=== PATIENT | male | born 1970 | race Caucasian/White ===

== ENCOUNTER 2018-02-08 20:00 | Inpatient (IN) | payer OTHER ==
[2018-02-08] MEDS: ALBUTEROL 0.5% (NEB) 2.5 MG/0.5 ML AMP INH (21:43)
[2018-02-08] MEDS: HYDROmorphONE 1 MG/ML SYG IV (21:46)
[2018-02-08] MEDS: ONDANSETRON 4 MG INJ IV (21:46)
[2018-02-08] MEDS: METHYLPREDNISOLONE 125 MG INJ IV (21:46)
[2018-02-08 22:16] LABS: TROPONIN-I 0.081 ng/ml (0.000-0.120)
[2018-02-08 23:26] LABS: ADD MAN DIFF? NO
[2018-02-08] MEDS: NITROGLYCERIN 2% 1 GM OINT PKT TD (23:27)
[2018-02-08] MEDS: AZITHROMYCIN 500MG/NS (PMX) 250 ML IV (23:28)
[2018-02-08] MEDS: ASPIRIN 325 MG TAB PO (23:28)
[2018-02-08 23:31] LABS: WHITE BLOOD COUNT 13.3 10^3/ul (4.8-10.8)
[2018-02-08 23:31] LABS: BASOPHIL # 0.1 10^3/ul (0.0-0.1); BASOPHILS % 0.4 % (0.0-2.0); EOSINOPHILS # 0.2 10^3/ul (0.0-0.5); EOSINOPHILS % 1.4 % (0.0-7.0); HEMATOCRIT 39.8 % (42.0-52.0); HEMOGLOBIN 13.7 g/dl (14.0-18.0); LYMPHOCYTES # 1.2 10^3/ul (0.8-2.9); LYMPHOCYTES % 8.8 % (15.0-51.0); MEAN CORPUSCULAR HEMOGLOBIN 29.9 pg (29.0-33.0); MEAN CORPUSCULAR HGB CONC 34.4 g/dl (32.0-37.0); MEAN CORPUSCULAR VOLUME 86.9 fl (82.0-101.0); MEAN PLATELET VOLUME 10.9 fl (7.4-10.4); MONOCYTE # 0.4 10^3/ul (0.3-0.9); MONOCYTES % 3.3 % (0.0-11.0); NEUTROPHIL # 11.4 10^3/ul (1.6-7.5); NEUTROPHILS % 85.5 % (39.0-77.0); PLATELET COUNT 183 10^3/UL (140-415); RED BLOOD COUNT 4.58 10^6/ul (4.70-6.10); RED CELL DISTRIBUTION WIDTH 13.6 % (11.5-14.5)
[2018-02-08 23:49] LABS: ANION GAP 9 (5-13); BLOOD UREA NITROGEN 9 mg/dl (7-20); CALCIUM 8.7 mg/dl (8.4-10.2); CARBON DIOXIDE 21 mmol/L (21-31); CHLORIDE 107 mmol/L (97-110); CREATININE 0.85 mg/dl (0.61-1.24); Estimated GFR > 60 mL/min (>60); GLUCOSE 143 mg/dl (70-220); POTASSIUM 4.4 mmol/L (3.5-5.1); SODIUM 137 mmol/L (135-144)
[2018-02-08 23:50] LABS: INR 0.99; PROTIME 13.2 Sec (11.9-14.9)
[2018-02-08 23:51] LABS: PARTIAL THROMBOPLASTIN TIME 30.2 Sec (23.0-35.0)
[2018-02-08 23:58] LABS: B-TYPE NATRIURETIC PEPTIDE 2910 PG/ML (0-125)
[2018-02-09] MEDS ORDERED: ACETAMINOPHEN 325 MG TAB PO ×2
[2018-02-09] MEDS ORDERED: BISACODYL (EC) 5 MG TAB PO
[2018-02-09] MEDS ORDERED: DOCUSATE SODIUM 100 MG CAP PO
[2018-02-09] MEDS ORDERED: NACL 0.9% 3 ML SYG IV
[2018-02-09] MEDS ORDERED: ONDANSETRON 4 MG INJ IV ×2
[2018-02-09] MEDS: CEFTRIAXONE 1 GM/50 ML (PMX) 50 ML IVPB ×2 (00:07→22:28)
[2018-02-09] MEDS: FUROSEMIDE 20 MG INJ IV ×3 (00:08→17:46)
[2018-02-09 02:39] LABS: ADD MAN DIFF? NO
[2018-02-09 02:49] LABS: HEMOGLOBIN A1C 5.5 % (0-5.9)
[2018-02-09 02:58] LABS: CREATINE KINASE 63 IU/L (23-200)
[2018-02-09 03:00] LABS: ALANINE AMINOTRANSFERASE 43 IU/L (13-69); ALBUMIN 3.9 g/dl (3.3-4.9); ALKALINE PHOSPHATASE 61 IU/L (42-121); ANION GAP 9 (5-13); ASPARTATE AMINO TRANSFERASE 29 IU/L (15-46); BILIRUBIN,INDIRECT 1.3 mg/dl (0-1.1); BILIRUBIN,TOTAL 1.3 mg/dl (0.2-1.3); BLOOD UREA NITROGEN 10 mg/dl (7-20); CALCIUM 8.4 mg/dl (8.4-10.2); CARBON DIOXIDE 23 mmol/L (21-31); CHLORIDE 107 mmol/L (97-110); CHOL/HDL RATIO 6.2 RATIO; CHOLESTEROL 193 mg/dl (100-200); CREATININE 0.85 mg/dl (0.61-1.24); Estimated GFR > 60 mL/min (>60); GLUCOSE 184 mg/dl (70-220); HDL CHOLESTEROL 31 mg/dl (27-67); LDL CHOLESTEROL,CALCULATED 125 mg/dl; MAGNESIUM 1.9 mg/dl (1.7-2.5); POTASSIUM 4.2 mmol/L (3.5-5.1); SODIUM 139 mmol/L (135-144); TOTAL PROTEIN 6.9 g/dl (6.1-8.1); TRIGLYCERIDES 185 mg/dl (0-149)
[2018-02-09 03:06] LABS: ABNORMAL IP MESSAGE 1; BASOPHILS % 0.2 % (0.0-2.0); EOSINOPHILS % 0.1 % (0.0-7.0); HEMOGLOBIN 13.7 g/dl (14.0-18.0); LYMPHOCYTES # 0.6 10^3/ul (0.8-2.9); LYMPHOCYTES % 4.4 % (15.0-51.0); MEAN CORPUSCULAR HEMOGLOBIN 30.6 pg (29.0-33.0); MEAN CORPUSCULAR HGB CONC 35.1 g/dl (32.0-37.0); MEAN CORPUSCULAR VOLUME 87.1 fl (82.0-101.0); MEAN PLATELET VOLUME 11.2 fl (7.4-10.4); MONOCYTE # 0.1 10^3/ul (0.3-0.9); MONOCYTES % 0.9 % (0.0-11.0); NEUTROPHILS % 93.7 % (39.0-77.0); PLATELET COUNT 172 10^3/UL (140-415); POSITIVE DIFF @See below; RED BLOOD COUNT 4.48 10^6/ul (4.70-6.10); RED CELL DISTRIBUTION WIDTH 13.8 % (11.5-14.5)
[2018-02-09 03:06] LABS: WHITE BLOOD COUNT 12.8 10^3/ul (4.8-10.8)
[2018-02-09 03:10] LABS: CK INDEX 1.7; CK-MB 1.09 ng/ml (0.0-2.4)
[2018-02-09] MEDS ORDERED: LORAZEPAM 2 MG INJ IV (06:00)
[2018-02-09 06:32] LABS: ETHANOL < 10.0 mg/dl
[2018-02-09] MEDS: BENAZEPRIL 10 MG TAB PO (08:43)
[2018-02-09] MEDS: ASPIRIN 81 MG TAB PO (08:43)
[2018-02-09] MEDS: THIAMINE 200 MG INJ IM (08:44)
[2018-02-09 11:11] LABS: CREATINE KINASE 64 IU/L (23-200)
[2018-02-09 11:22] LABS: CK INDEX 1.8; CK-MB 1.13 ng/ml (0.0-2.4)
[2018-02-09 11:41] LABS: ADD UMIC NO; UR ASCORBIC ACID NEGATIVE (NEGATIVE); UR BILIRUBIN (Dip) NEGATIVE (NEGATIVE); UR BLOOD (Dip) NEGATIVE (NEGATIVE); UR CLARITY CLEAR (CLEAR); UR COLOR STRAW (YELLOW); UR GLUCOSE (Dip) NEGATIVE (NEGATIVE); UR KETONES (Dip) NEGATIVE (NEGATIVE); UR LEUKOCYTE ESTERASE (Dip) NEGATIVE Leu/ul (NEGATIVE); UR NITRITE (Dip) NEGATIVE (NEGATIVE); UR SPECIFIC GRAVITY (Dip) 1.008 (1.003-1.030); UR TOTAL PROTEIN (Dip) NEGATIVE (NEGATIVE); UR UROBILINOGEN (Dip) NEGATIVE (NEGATIVE)
[2018-02-09] MEDS: DIGOXIN 500 MCG INJ IV (14:22)
[2018-02-09 19:13] LABS: TROPONIN-I 0.066 ng/ml (0.000-0.120)
[2018-02-09] MEDS: ATORVASTATIN 20 MG TAB PO (20:36)
[2018-02-09] MEDS ORDERED: ATORVASTATIN 10 MG TAB PO (21:00)
[2018-02-09] MEDS ORDERED: AZITHROMYCIN 500MG/NS (PMX) 250 ML IVPB (23:00)
[2018-02-10 01:35] LABS: TROPONIN-I 0.095 ng/ml (0.000-0.120)
[2018-02-10] MEDS: FUROSEMIDE 20 MG INJ IV ×2 (05:25→17:30)
[2018-02-10 05:33] LABS: ADD MAN DIFF? NO; BASOPHILS % 0.2 % (0.0-2.0); EOSINOPHILS # 0.1 10^3/ul (0.0-0.5); EOSINOPHILS % 0.7 % (0.0-7.0); HEMATOCRIT 38.8 % (42.0-52.0); HEMOGLOBIN 13.3 g/dl (14.0-18.0); LYMPHOCYTES # 2.7 10^3/ul (0.8-2.9); MEAN CORPUSCULAR HEMOGLOBIN 29.8 pg (29.0-33.0); MEAN CORPUSCULAR HGB CONC 34.3 g/dl (32.0-37.0); MEAN CORPUSCULAR VOLUME 86.8 fl (82.0-101.0); MEAN PLATELET VOLUME 11.1 fl (7.4-10.4); MONOCYTE # 0.8 10^3/ul (0.3-0.9); MONOCYTES % 5.8 % (0.0-11.0); NEUTROPHIL # 9.8 10^3/ul (1.6-7.5); NEUTROPHILS % 72.6 % (39.0-77.0); PLATELET COUNT 178 10^3/UL (140-415); RED BLOOD COUNT 4.47 10^6/ul (4.70-6.10); RED CELL DISTRIBUTION WIDTH 13.4 % (11.5-14.5)
[2018-02-10 05:33] LABS: WHITE BLOOD COUNT 13.5 10^3/ul (4.8-10.8)
[2018-02-10 05:55] LABS: ANION GAP 9 (5-13); BLOOD UREA NITROGEN 20 mg/dl (7-20); CALCIUM 8.6 mg/dl (8.4-10.2); CARBON DIOXIDE 23 mmol/L (21-31); CHLORIDE 107 mmol/L (97-110); CREATININE 0.89 mg/dl (0.61-1.24); Estimated GFR > 60 mL/min (>60); GLUCOSE 129 mg/dl (70-220); POTASSIUM 4.1 mmol/L (3.5-5.1); SODIUM 139 mmol/L (135-144)
[2018-02-10 06:03] LABS: B-TYPE NATRIURETIC PEPTIDE 1500 PG/ML (0-125)
[2018-02-10] MEDS: ASPIRIN 81 MG TAB PO (09:12)
[2018-02-10] MEDS: BENAZEPRIL 10 MG TAB PO (09:12)
[2018-02-10] MEDS: SPIRONOLACTONE 25 MG TAB PO (09:12)
[2018-02-10] MEDS: THIAMINE 200 MG INJ IM (09:13)
[2018-02-10] MEDS: ATORVASTATIN 20 MG TAB PO (21:02)
[2018-02-10] MEDS: FUROSEMIDE 20 MG TAB PO (21:02)
[2018-02-10] MEDS: ENOXAPARIN 40 MG/0.4 ML SYG SC (21:08)
[2018-02-11 06:06] LABS: ADD MAN DIFF? NO
[2018-02-11 06:21] LABS: WHITE BLOOD COUNT 8.1 10^3/ul (4.8-10.8)
[2018-02-11 06:21] LABS: BASOPHIL # 0.1 10^3/ul (0.0-0.1); BASOPHILS % 0.6 % (0.0-2.0); EOSINOPHILS # 0.2 10^3/ul (0.0-0.5); EOSINOPHILS % 2.6 % (0.0-7.0); HEMATOCRIT 43.1 % (42.0-52.0); HEMOGLOBIN 14.6 g/dl (14.0-18.0); LYMPHOCYTES # 2.9 10^3/ul (0.8-2.9); LYMPHOCYTES % 35.5 % (15.0-51.0); MEAN CORPUSCULAR HEMOGLOBIN 29.7 pg (29.0-33.0); MEAN CORPUSCULAR HGB CONC 33.9 g/dl (32.0-37.0); MEAN CORPUSCULAR VOLUME 87.6 fl (82.0-101.0); MEAN PLATELET VOLUME 11.3 fl (7.4-10.4); MONOCYTE # 0.7 10^3/ul (0.3-0.9); MONOCYTES % 8.6 % (0.0-11.0); NEUTROPHIL # 4.2 10^3/ul (1.6-7.5); NEUTROPHILS % 52.1 % (39.0-77.0); PLATELET COUNT 187 10^3/UL (140-415); RED BLOOD COUNT 4.92 10^6/ul (4.70-6.10); RED CELL DISTRIBUTION WIDTH 13.8 % (11.5-14.5)
[2018-02-11] MEDS: FUROSEMIDE 20 MG TAB PO (06:22)
[2018-02-11 06:39] LABS: ANION GAP 12 (5-13); BLOOD UREA NITROGEN 19 mg/dl (7-20); CALCIUM 8.8 mg/dl (8.4-10.2); CARBON DIOXIDE 26 mmol/L (21-31); CHLORIDE 102 mmol/L (97-110); CREATININE 0.93 mg/dl (0.61-1.24); Estimated GFR > 60 mL/min (>60); GLUCOSE 118 mg/dl (70-220); POTASSIUM 4.3 mmol/L (3.5-5.1); SODIUM 140 mmol/L (135-144)
[2018-02-11] MEDS: BENAZEPRIL 10 MG TAB PO (08:50)
[2018-02-11] MEDS: ASPIRIN 81 MG TAB PO (08:50)
[2018-02-11] MEDS: SPIRONOLACTONE 25 MG TAB PO (08:51)
[2018-02-11] MEDS: THIAMINE 200 MG INJ IM (10:40)
== END 2018-02-11 11:55 | disposition home or self-care (01) | DRG 292 ==
LOC: E/R 20:00 → 6WM 23:35
PROVIDERS: Family Medicine
DX: I50.23 Acute on chronic systolic (congestive) heart failure (principal); R65.10 Systemic inflammatory response syndrome (SIRS) of non-infectious origin without acute organ dysfunction; I25.5 Ischemic cardiomyopathy; I25.10 Atherosclerotic heart disease of native coronary artery without angina pectoris; E78.5 Hyperlipidemia, unspecified; I10 Essential (primary) hypertension; F10.20 Alcohol dependence, uncomplicated
CPT/HCPCS: 36415; 71045; 71250; 80048; 80053; 80061; 80307; 81003; 82550; 82553; 83036; 83735; 83880; 84100; 84443; 84484; 85025; 85610; 85730; 87040; 90686; 93005; 93306; 94644; 96374; 96375; 99285-25

== ENCOUNTER → 2018-05-08 | Outpatient (CLI) | payer OTHER ==
[2018-05-08] MEDS: METOPROLOL 100 MG TAB ×2 (09:00→09:16)
[2018-05-08] MEDS: NITROGLYCERIN AEROSOL (4.9 GM) (10:20)
[2018-05-08] MEDS: SOD CHLORIDE 0.9% 100 ML (10:36)
[2018-05-08] MEDS: IOHEXOL 100 ML (10:37)
== END | disposition home or self-care (01) ==
LOC: C/S 08:08
DX: R07.9 Chest pain, unspecified (principal)
CPT/HCPCS: 75571; 75574

== ENCOUNTER 2018-07-01 09:27 | Inpatient (IN) | payer OTHER ==
[2018-07-01 09:35] LABS: ADD MAN DIFF? NO
[2018-07-01 09:37] LABS: BASOPHILS % 0.2 % (0.0-2.0); EOSINOPHILS # 0.1 10^3/ul (0.0-0.5); EOSINOPHILS % 0.4 % (0.0-7.0); HEMATOCRIT 47.9 % (42.0-52.0); HEMOGLOBIN 15.8 g/dl (14.0-18.0); LYMPHOCYTES # 1.8 10^3/ul (0.8-2.9); MEAN CORPUSCULAR HEMOGLOBIN 28.7 pg (29.0-33.0); MEAN CORPUSCULAR VOLUME 86.9 fl (82.0-101.0); MONOCYTE # 0.8 10^3/ul (0.3-0.9); MONOCYTES % 6.4 % (0.0-11.0); NEUTROPHIL # 9.5 10^3/ul (1.6-7.5); NEUTROPHILS % 77.6 % (39.0-77.0); PLATELET COUNT 242 10^3/UL (140-415); RED BLOOD COUNT 5.51 10^6/ul (4.70-6.10); RED CELL DISTRIBUTION WIDTH 13.9 % (11.5-14.5)
[2018-07-01 09:37] LABS: WHITE BLOOD COUNT 12.3 10^3/ul (4.8-10.8)
[2018-07-01] MEDS: SOD CHLORIDE 0.9% 100 ML (09:49)
[2018-07-01] MEDS: IODIXANOL LOCM 100 ML BTL (09:49)
[2018-07-01] MEDS: ASPIRIN 325 MG TAB PO (09:50)
[2018-07-01 09:51] LABS: HEMOGLOBIN A1C 6.5 % (0-5.9)
[2018-07-01 09:55] LABS: ANION GAP 17 (5-13); BLOOD UREA NITROGEN 41 mg/dl (7-20); CALCIUM 9.9 mg/dl (8.4-10.2); CARBON DIOXIDE 24 mmol/L (21-31); CHLORIDE 108 mmol/L (97-110); CHOLESTEROL 247 mg/dl (100-200); CREATINE KINASE 257 IU/L (23-200); ETHANOL < 10.0 mg/dl (0-0); Estimated GFR > 60 mL/min (>60); GLUCOSE 163 mg/dl (70-220); HDL CHOLESTEROL 41 mg/dl (28-71); LDL CHOLESTEROL,CALCULATED 165 mg/dl; POTASSIUM 4.3 mmol/L (3.5-5.1); SODIUM 149 mmol/L (135-144); TRIGLYCERIDES 204 mg/dl (0-149)
[2018-07-01 09:57] LABS: INR 0.97
[2018-07-01 09:58] LABS: PARTIAL THROMBOPLASTIN TIME 34.6 Sec (23.0-35.0)
[2018-07-01 10:06] LABS: TROPONIN-I 0.017 ng/ml (0.000-0.120)
[2018-07-01 10:08] LABS: CK-MB 2.47 ng/ml (0.0-2.4)
[2018-07-01] MEDS ORDERED: ONDANSETRON 4 MG INJ IV ×2 (12:00→19:00)
[2018-07-01] MEDS ORDERED: ACETAMINOPHEN 325 MG TAB PO (12:00)
[2018-07-01] MEDS: ACETAMINOPHEN 325 MG TAB PO (13:26)
[2018-07-01 15:53] LABS: ADD UMIC NO; UR ASCORBIC ACID NEGATIVE (NEGATIVE); UR BILIRUBIN (Dip) NEGATIVE (NEGATIVE); UR BLOOD (Dip) NEGATIVE (NEGATIVE); UR CLARITY CLEAR (CLEAR); UR COLOR YELLOW (YELLOW); UR GLUCOSE (Dip) NEGATIVE (NEGATIVE); UR KETONES (Dip) NEGATIVE (NEGATIVE); UR LEUKOCYTE ESTERASE (Dip) NEGATIVE Leu/ul (NEGATIVE); UR NITRITE (Dip) NEGATIVE (NEGATIVE); UR TOTAL PROTEIN (Dip) NEGATIVE (NEGATIVE); UR UROBILINOGEN (Dip) 2+ mg/dL (NEGATIVE)
[2018-07-01 16:17] LABS: AMPHETAMINE/METHAMPHETAMINE POSITIVE (NEGATIVE); BARBITURATES NEGATIVE (NEGATIVE); BENZODIAZEPINES NEGATIVE (NEGATIVE); CANNABINOIDS NEGATIVE (NEGATIVE); COCAINE NEGATIVE (NEGATIVE); OPIATES NEGATIVE (NEGATIVE)
[2018-07-01] MEDS ORDERED: ZOLPIDEM 5 MG TAB PO (19:00)
[2018-07-01] MEDS ORDERED: LORAZEPAM 2 MG INJ IV (19:00)
[2018-07-01] MEDS ORDERED: GLUCOSE GEL 15 GRAM TUBE PO ×2 (19:30)
[2018-07-01] MEDS ORDERED: DEXTROSE 50% 50 ML SYRINGE IV ×2 (19:30)
[2018-07-01] MEDS ORDERED: GLUCAGON 1 MG INJ IM (19:30)
[2018-07-01] MEDS ORDERED: GLUCOSE GEL 15 GRAM TUBE BUCCAL (19:30)
[2018-07-01] MEDS: DEXTROSE 5%-0.45% NACL 1,000 ML IV (19:30)
[2018-07-01] MEDS: ATORVASTATIN 80 MG TAB PO (20:55)
[2018-07-01] MEDS: DOCUSATE SODIUM 100 MG CAP PO (20:55)
[2018-07-01] MEDS: FUROSEMIDE 20 MG TAB PO (20:55)
[2018-07-01] MEDS: SACUBITRIL/VALSARTAN (24mg-26mg) TABLET PO (20:56)
[2018-07-01] MEDS: FAMOTIDINE 20 MG TAB PO (20:56)
[2018-07-01] MEDS: INSULIN ASPART [NOVOLOG] 3 ML PEN SC (20:56)
[2018-07-02] MEDS: ACCU-CHEK XX (02:00)
[2018-07-02] MEDS: FUROSEMIDE 20 MG TAB PO ×2 (05:52→17:35)
[2018-07-02 06:52] LABS: ADD MAN DIFF? NO
[2018-07-02 06:56] LABS: BASOPHILS % 0.4 % (0.0-2.0); EOSINOPHILS # 0.1 10^3/ul (0.0-0.5); EOSINOPHILS % 1.3 % (0.0-7.0); HEMATOCRIT 45.8 % (42.0-52.0); HEMOGLOBIN 15.1 g/dl (14.0-18.0); LYMPHOCYTES # 1.9 10^3/ul (0.8-2.9); LYMPHOCYTES % 24.2 % (15.0-51.0); MEAN CORPUSCULAR HEMOGLOBIN 28.8 pg (29.0-33.0); MEAN CORPUSCULAR VOLUME 87.2 fl (82.0-101.0); MEAN PLATELET VOLUME 11.2 fl (7.4-10.4); MONOCYTE # 0.6 10^3/ul (0.3-0.9); NEUTROPHIL # 5.2 10^3/ul (1.6-7.5); NEUTROPHILS % 65.7 % (39.0-77.0); PLATELET COUNT 194 10^3/UL (140-415); RED BLOOD COUNT 5.25 10^6/ul (4.70-6.10); RED CELL DISTRIBUTION WIDTH 14.2 % (11.5-14.5)
[2018-07-02 07:24] LABS: ANION GAP 16 (5-13); BLOOD UREA NITROGEN 42 mg/dl (7-20); CARBON DIOXIDE 25 mmol/L (21-31); CHLORIDE 105 mmol/L (97-110); CHOL/HDL RATIO 6.3 RATIO; CHOLESTEROL 216 mg/dl (100-200); Estimated GFR > 60 mL/min (>60); GLUCOSE 134 mg/dl (70-220); HDL CHOLESTEROL 34 mg/dl (28-71); LDL CHOLESTEROL,CALCULATED 141 mg/dl; MAGNESIUM 2.8 mg/dl (1.7-2.5); POTASSIUM 3.9 mmol/L (3.5-5.1); SODIUM 146 mmol/L (135-144); TRIGLYCERIDES 203 mg/dl (0-149)
[2018-07-02] MEDS: INSULIN ASPART [NOVOLOG] 3 ML PEN SC ×4 (07:35→21:00)
[2018-07-02 07:50] LABS: THYROID STIMULATING HORMONE 0.705 MIU/L (0.465-4.680)
[2018-07-02] MEDS: DOCUSATE SODIUM 100 MG CAP PO ×2 (08:53→20:53)
[2018-07-02] MEDS: FAMOTIDINE 20 MG TAB PO ×2 (08:53→20:52)
[2018-07-02] MEDS: SPIRONOLACTONE 25 MG TAB PO (08:54)
[2018-07-02] MEDS: ASPIRIN 81 MG TAB PO (08:54)
[2018-07-02] MEDS: THIAMINE 100 MG TAB PO (08:54)
[2018-07-02] MEDS: ENOXAPARIN 40 MG/0.4 ML SYG SC (09:03)
[2018-07-02] MEDS: DEXTROSE 5%-0.45% NACL 1,000 ML IV ×2 (09:59→22:57)
[2018-07-02] MEDS: SACUBITRIL/VALSARTAN (24mg-26mg) TABLET PO ×2 (10:45→20:52)
[2018-07-02] MEDS: ATORVASTATIN 80 MG TAB PO (20:52)
[2018-07-03 01:25] LABS: TROPONIN-I < 0.012 ng/ml (0.000-0.120)
[2018-07-03] MEDS: ACCU-CHEK XX (02:00)
[2018-07-03 02:47] LABS: AMPHETAMINE/METHAMPHETAMINE Negative (NEGATIVE); BARBITURATES Negative (NEGATIVE); BENZODIAZEPINES Negative (NEGATIVE); CANNABINOIDS Negative (NEGATIVE); COCAINE Negative (NEGATIVE); OPIATES Negative (NEGATIVE)
[2018-07-03] MEDS: FUROSEMIDE 20 MG TAB PO ×2 (05:23→18:13)
[2018-07-03 07:48] LABS: TROPONIN-I < 0.012 ng/ml (0.000-0.120)
[2018-07-03] MEDS: INSULIN ASPART [NOVOLOG] 3 ML PEN SC ×4 (07:55→20:28)
[2018-07-03 08:43] LABS: ERYTHROCYTE SEDIMENTATION RATE 21 mm/Hr (0-15)
[2018-07-03] MEDS: ASPIRIN 81 MG TAB PO (09:00)
[2018-07-03] MEDS: FAMOTIDINE 20 MG TAB PO ×2 (09:41→20:27)
[2018-07-03] MEDS: SPIRONOLACTONE 25 MG TAB PO (09:41)
[2018-07-03] MEDS: THIAMINE 100 MG TAB PO (09:42)
[2018-07-03] MEDS: SACUBITRIL/VALSARTAN (24mg-26mg) TABLET PO ×2 (09:42→20:27)
[2018-07-03] MEDS: DOCUSATE SODIUM 100 MG CAP PO ×2 (09:42→21:00)
[2018-07-03 12:32] LABS: HOMOCYSTEINE - CARDIOVASCULAR 10.6 umol/L (<11.4)
[2018-07-03] MEDS: DEXTROSE 5%-0.45% NACL 1,000 ML IV (15:37)
[2018-07-03] MEDS: ATORVASTATIN 80 MG TAB PO (20:28)
[2018-07-03 22:09] LABS: RAPID PLASMA REAGIN NONREACTIVE (NR)
[2018-07-04] MEDS: ACCU-CHEK XX (02:00)
[2018-07-04] MEDS: FUROSEMIDE 20 MG TAB PO ×2 (06:59→17:58)
[2018-07-04] MEDS: DEXTROSE 5%-0.45% NACL 1,000 ML IV (08:17)
[2018-07-04] MEDS: INSULIN ASPART [NOVOLOG] 3 ML PEN SC ×4 (08:27→21:22)
[2018-07-04] MEDS: SPIRONOLACTONE 25 MG TAB PO (09:08)
[2018-07-04] MEDS: THIAMINE 100 MG TAB PO (09:08)
[2018-07-04] MEDS: DOCUSATE SODIUM 100 MG CAP PO ×2 (09:08→21:00)
[2018-07-04] MEDS: ASPIRIN 81 MG TAB PO (09:08)
[2018-07-04] MEDS: FAMOTIDINE 20 MG TAB PO ×2 (09:08→21:05)
[2018-07-04] MEDS: SACUBITRIL/VALSARTAN (24mg-26mg) TABLET PO ×2 (09:09→21:05)
[2018-07-04] MEDS: ATORVASTATIN 80 MG TAB PO (21:06)
[2018-07-05] MEDS: ACCU-CHEK XX (02:00)
[2018-07-05] MEDS: FUROSEMIDE 20 MG TAB PO ×2 (05:30→17:06)
[2018-07-05] MEDS: INSULIN ASPART [NOVOLOG] 3 ML PEN SC ×4 (07:55→20:28)
[2018-07-05] MEDS: THIAMINE 100 MG TAB PO (08:12)
[2018-07-05] MEDS: SPIRONOLACTONE 25 MG TAB PO (08:12)
[2018-07-05] MEDS: SACUBITRIL/VALSARTAN (24mg-26mg) TABLET PO ×2 (08:12→20:24)
[2018-07-05] MEDS: DOCUSATE SODIUM 100 MG CAP PO ×2 (08:12→20:24)
[2018-07-05] MEDS: FAMOTIDINE 20 MG TAB PO ×2 (08:12→20:24)
[2018-07-05] MEDS: ASPIRIN 81 MG TAB PO (08:12)
[2018-07-05 11:41] LABS: B2 GLYCOPROTEIN I AB (IGA) <9 SAU (< OR = 20); B2 GLYCOPROTEIN I AB (IGG) <9 SGU (< OR = 20); B2 GLYCOPROTEIN I AB (IGM) <9 SMU (< OR = 20)
[2018-07-05 13:16] LABS: CARDIOLIPIN AB - IGA <11 APL; CARDIOLIPIN AB - IGG <14 GPL; CARDIOLIPIN AB - IGM <12 MPL
[2018-07-05 20:12] LABS: ANTI-THROMBIN III 32 mg/dL (19-30)
[2018-07-05] MEDS: ATORVASTATIN 80 MG TAB PO (20:24)
[2018-07-06 00:06] LABS: HEXAGONAL PHASE CONFIRMATION NEGATIVE (NEGATIVE)
[2018-07-06] MEDS: ACCU-CHEK XX (02:50)
[2018-07-06] MEDS: FUROSEMIDE 20 MG TAB PO ×2 (05:22→17:07)
[2018-07-06] MEDS: INSULIN ASPART [NOVOLOG] 3 ML PEN SC ×4 (07:53→21:00)
[2018-07-06] MEDS: THIAMINE 100 MG TAB PO (09:06)
[2018-07-06] MEDS: SPIRONOLACTONE 25 MG TAB PO (09:06)
[2018-07-06] MEDS: ASPIRIN 81 MG TAB PO (09:06)
[2018-07-06] MEDS: FAMOTIDINE 20 MG TAB PO ×2 (09:06→20:26)
[2018-07-06] MEDS: DOCUSATE SODIUM 100 MG CAP PO ×2 (09:06→20:26)
[2018-07-06] MEDS: SACUBITRIL/VALSARTAN (24mg-26mg) TABLET PO ×2 (09:06→20:26)
[2018-07-06] MEDS: metFORMIN 500 MG TAB PO (17:07)
[2018-07-06] MEDS: ATORVASTATIN 80 MG TAB PO (20:26)
[2018-07-07] MEDS: ACCU-CHEK XX (02:00)
[2018-07-07] MEDS: FUROSEMIDE 20 MG TAB PO ×2 (06:20→18:35)
[2018-07-07 07:55] LABS: ADD MAN DIFF? NO
[2018-07-07] MEDS: INSULIN ASPART [NOVOLOG] 3 ML PEN SC ×4 (07:55→20:20)
[2018-07-07 08:01] LABS: BASOPHILS % 0.5 % (0.0-2.0); EOSINOPHILS # 0.3 10^3/ul (0.0-0.5); EOSINOPHILS % 3.2 % (0.0-7.0); HEMATOCRIT 41.3 % (42.0-52.0); LYMPHOCYTES # 2.6 10^3/ul (0.8-2.9); LYMPHOCYTES % 29.8 % (15.0-51.0); MEAN CORPUSCULAR HEMOGLOBIN 28.9 pg (29.0-33.0); MEAN CORPUSCULAR HGB CONC 33.9 g/dl (32.0-37.0); MEAN CORPUSCULAR VOLUME 85.2 fl (82.0-101.0); MEAN PLATELET VOLUME 11.2 fl (7.4-10.4); MONOCYTE # 0.7 10^3/ul (0.3-0.9); MONOCYTES % 7.7 % (0.0-11.0); NEUTROPHIL # 5.1 10^3/ul (1.6-7.5); NEUTROPHILS % 58.2 % (39.0-77.0); PLATELET COUNT 197 10^3/UL (140-415); RED BLOOD COUNT 4.85 10^6/ul (4.70-6.10); RED CELL DISTRIBUTION WIDTH 13.1 % (11.5-14.5)
[2018-07-07 08:01] LABS: WHITE BLOOD COUNT 8.7 10^3/ul (4.8-10.8)
[2018-07-07 08:30] LABS: ALANINE AMINOTRANSFERASE 41 IU/L (13-69); ALBUMIN 4.2 g/dl (3.3-4.9); ALBUMIN/GLOBULIN RATIO 1.23; ALKALINE PHOSPHATASE 66 IU/L (42-121); ANION GAP 11 (5-13); ASPARTATE AMINO TRANSFERASE 32 IU/L (15-46); BILIRUBIN,INDIRECT 1.1 mg/dl (0-1.1); BILIRUBIN,TOTAL 1.1 mg/dl (0.2-1.3); BLOOD UREA NITROGEN 21 mg/dl (7-20); CALCIUM 9.3 mg/dl (8.4-10.2); CARBON DIOXIDE 26 mmol/L (21-31); CHLORIDE 99 mmol/L (97-110); CREATININE 0.91 mg/dl (0.61-1.24); Estimated GFR > 60 mL/min (>60); GLUCOSE 126 mg/dl (70-220); POTASSIUM 4.1 mmol/L (3.5-5.1); SODIUM 136 mmol/L (135-144); TOTAL PROTEIN 7.6 g/dl (6.1-8.1)
[2018-07-07] MEDS: SACUBITRIL/VALSARTAN (24mg-26mg) TABLET PO ×2 (09:54→20:17)
[2018-07-07] MEDS: THIAMINE 100 MG TAB PO (09:54)
[2018-07-07] MEDS: SPIRONOLACTONE 25 MG TAB PO (09:54)
[2018-07-07] MEDS: DOCUSATE SODIUM 100 MG CAP PO ×2 (09:54→20:17)
[2018-07-07] MEDS: ASPIRIN 81 MG TAB PO (09:55)
[2018-07-07] MEDS: FAMOTIDINE 20 MG TAB PO ×2 (09:55→20:17)
[2018-07-07] MEDS: metFORMIN 500 MG TAB PO (17:05)
[2018-07-07] MEDS: LISINOPRIL 5 MG TAB GTB (17:08)
[2018-07-07] MEDS: ENOXAPARIN 40 MG/0.4 ML SYG SC (17:12)
[2018-07-07] MEDS: ATORVASTATIN 80 MG TAB PO (20:17)
[2018-07-08] MEDS: morphine 2 MG INJ IV (00:14)
[2018-07-08] MEDS: ACCU-CHEK XX (01:49)
[2018-07-08] MEDS: FUROSEMIDE 20 MG TAB PO ×2 (05:13→17:25)
[2018-07-08] MEDS: INSULIN ASPART [NOVOLOG] 3 ML PEN SC ×3 (07:55→17:35)
[2018-07-08] MEDS: FAMOTIDINE 20 MG TAB PO (08:37)
[2018-07-08] MEDS: SACUBITRIL/VALSARTAN (24mg-26mg) TABLET PO (08:37)
[2018-07-08] MEDS: SPIRONOLACTONE 25 MG TAB PO (08:37)
[2018-07-08] MEDS: ASPIRIN 81 MG TAB PO (08:37)
[2018-07-08] MEDS: DOCUSATE SODIUM 100 MG CAP PO (08:37)
[2018-07-08] MEDS: LISINOPRIL 5 MG TAB GTB (08:37)
[2018-07-08] MEDS: THIAMINE 100 MG TAB PO (08:39)
[2018-07-08] MEDS: ENOXAPARIN 40 MG/0.4 ML SYG SC (08:42)
[2018-07-08] MEDS: metFORMIN 500 MG TAB PO (17:25)
== END 2018-07-08 18:30 | DRG 64 ==
LOC: E/R 09:27 → TEL 11:34
DX: I63.522 Cerebral infarction due to unspecified occlusion or stenosis of left anterior cerebral artery (principal); I50.23 Acute on chronic systolic (congestive) heart failure; I42.9 Cardiomyopathy, unspecified; M62.82 Rhabdomyolysis; E87.0 Hyperosmolality and hypernatremia; G81.01 Flaccid hemiplegia affecting right dominant side; F15.10 Other stimulant abuse, uncomplicated; I25.2 Old myocardial infarction; R73.03 Prediabetes; E78.5 Hyperlipidemia, unspecified; E86.0 Dehydration; I11.0 Hypertensive heart disease with heart failure; Z86.73 Personal history of transient ischemic attack (TIA), and cerebral infarction without residual deficits; Z72.0 Tobacco use; D72.829 Elevated white blood cell count, unspecified; R13.10 Dysphagia, unspecified; F15.99 Other stimulant use, unspecified with unspecified stimulant-induced disorder
CPT/HCPCS: 36415; 70450; 70496; 70498; 70551; 71045; 80048; 80053; 80061; 80307; 81003; 81240; 82550; 82553; 82962; 83036; 83090; 83735; 83890; 84443; 84484; 85025; 85300; 85302; 85305; 85610; 85613; 85651; 85730; 86146; 86147; 86592; 92610; 93005; 93306; 97110; 97116; 97163; 97167; 97530; 97535; 99291-25

== ENCOUNTER 2018-07-08 18:49 | Inpatient (IN) | payer OTHER ==
[2018-07-08] MEDS ORDERED: ATORVASTATIN 80 MG TAB PO (21:47)
[2018-07-08] MEDS ORDERED: SACUBITRIL/VALSARTAN (24mg-26mg) TABLET PO (21:47)
[2018-07-08] MEDS: SACUBITRIL/VALSARTAN (24mg-26mg) TABLET PO (22:35)
[2018-07-08] MEDS: ATORVASTATIN 80 MG TAB PO (22:35)
[2018-07-08 22:56] LABS: ADD UMIC NO; UR ASCORBIC ACID NEGATIVE (NEGATIVE); UR BILIRUBIN (Dip) NEGATIVE (NEGATIVE); UR BLOOD (Dip) NEGATIVE (NEGATIVE); UR CLARITY CLEAR (CLEAR); UR COLOR YELLOW (YELLOW); UR GLUCOSE (Dip) NEGATIVE (NEGATIVE); UR KETONES (Dip) NEGATIVE (NEGATIVE); UR LEUKOCYTE ESTERASE (Dip) NEGATIVE Leu/ul (NEGATIVE); UR NITRITE (Dip) NEGATIVE (NEGATIVE); UR SPECIFIC GRAVITY (Dip) 1.012 (1.003-1.030); UR TOTAL PROTEIN (Dip) NEGATIVE (NEGATIVE); UR UROBILINOGEN (Dip) NEGATIVE (NEGATIVE)
[2018-07-08] MEDS ORDERED: DEXTROSE 50% 50 ML SYRINGE IV ×2 (23:00)
[2018-07-08] MEDS ORDERED: GLUCAGON 1 MG INJ IM (23:00)
[2018-07-08] MEDS ORDERED: GLUCOSE GEL 15 GRAM TUBE BUCCAL (23:00)
[2018-07-08] MEDS ORDERED: GLUCOSE GEL 15 GRAM TUBE PO ×2 (23:00)
[2018-07-09] MEDS ORDERED: BISACODYL 10 MG SUPP PR (01:00)
[2018-07-09] MEDS ORDERED: MAGNESIUM HYDROXIDE 30ML CUP PO (01:00)
[2018-07-09] MEDS ORDERED: LACTULOSE 30ML CUP PO ×2 (01:00→02:00)
[2018-07-09] MEDS: ACCU-CHEK XX (02:00)
[2018-07-09 06:21] LABS: ADD MAN DIFF? NO
[2018-07-09 06:28] LABS: BASOPHIL # 0.1 10^3/ul (0.0-0.1); BASOPHILS % 0.6 % (0.0-2.0); EOSINOPHILS # 0.3 10^3/ul (0.0-0.5); EOSINOPHILS % 3.4 % (0.0-7.0); HEMATOCRIT 40.5 % (42.0-52.0); HEMOGLOBIN 13.7 g/dl (14.0-18.0); LYMPHOCYTES # 2.1 10^3/ul (0.8-2.9); LYMPHOCYTES % 26.3 % (15.0-51.0); MEAN CORPUSCULAR HEMOGLOBIN 29.1 pg (29.0-33.0); MEAN CORPUSCULAR HGB CONC 33.8 g/dl (32.0-37.0); MEAN CORPUSCULAR VOLUME 86.2 fl (82.0-101.0); MEAN PLATELET VOLUME 11.1 fl (7.4-10.4); MONOCYTE # 0.6 10^3/ul (0.3-0.9); MONOCYTES % 8.1 % (0.0-11.0); NEUTROPHIL # 4.8 10^3/ul (1.6-7.5); NEUTROPHILS % 61.1 % (39.0-77.0); PLATELET COUNT 199 10^3/UL (140-415); RED CELL DISTRIBUTION WIDTH 12.8 % (11.5-14.5)
[2018-07-09 06:28] LABS: WHITE BLOOD COUNT 7.9 10^3/ul (4.8-10.8)
[2018-07-09] MEDS: FUROSEMIDE 20 MG TAB PO ×2 (06:49→18:49)
[2018-07-09 06:59] LABS: ALANINE AMINOTRANSFERASE 44 IU/L (13-69); ALBUMIN 4.3 g/dl (3.3-4.9); ALBUMIN/GLOBULIN RATIO 1.26; ALKALINE PHOSPHATASE 68 IU/L (42-121); ANION GAP 10 (5-13); ASPARTATE AMINO TRANSFERASE 40 IU/L (15-46); BLOOD UREA NITROGEN 24 mg/dl (7-20); CALCIUM 9.5 mg/dl (8.4-10.2); CARBON DIOXIDE 29 mmol/L (21-31); CHLORIDE 101 mmol/L (97-110); CREATININE 0.92 mg/dl (0.61-1.24); Estimated GFR > 60 mL/min (>60); GLUCOSE 123 mg/dl (70-220); POTASSIUM 4.2 mmol/L (3.5-5.1); SODIUM 140 mmol/L (135-144); TOTAL PROTEIN 7.7 g/dl (6.1-8.1)
[2018-07-09] MEDS: INSULIN ASPART [NOVOLOG] 3 ML PEN SC ×4 (07:35→21:00)
[2018-07-09] MEDS: DOCUSATE SODIUM 100 MG CAP PO ×2 (09:03→21:37)
[2018-07-09] MEDS: ASPIRIN 81 MG TAB PO (09:04)
[2018-07-09] MEDS: SPIRONOLACTONE 25 MG TAB PO (09:04)
[2018-07-09] MEDS: SACUBITRIL/VALSARTAN (24mg-26mg) TABLET PO ×2 (09:04→21:38)
[2018-07-09] MEDS: THIAMINE 100 MG TAB PO (09:04)
[2018-07-09] MEDS: ENOXAPARIN 40 MG/0.4 ML SYG SC (09:05)
[2018-07-09] MEDS: NITROGLYCERIN (SL) 0.4 MG TAB SL (14:33)
[2018-07-09 15:55] LABS: CREATINE KINASE 414 IU/L (23-200)
[2018-07-09 16:01] LABS: B-TYPE NATRIURETIC PEPTIDE 31 PG/ML (0-125)
[2018-07-09 16:05] LABS: CK INDEX 0.4; CK-MB 1.52 ng/ml (0.0-2.4); TROPONIN-I < 0.012 ng/ml (0.000-0.120)
[2018-07-09] MEDS: metFORMIN 500 MG TAB PO (17:48)
[2018-07-09 20:57] LABS: CREATINE KINASE 384 IU/L (23-200)
[2018-07-09 21:09] LABS: CK INDEX 0.3; CK-MB 1.27 ng/ml (0.0-2.4); TROPONIN-I < 0.012 ng/ml (0.000-0.120)
[2018-07-09] MEDS: SENNA TAB PO (21:37)
[2018-07-09] MEDS: ATORVASTATIN 80 MG TAB PO (21:37)
[2018-07-09] MEDS: ISOSORBIDE DINITRATE 10 MG TAB PO (21:38)
[2018-07-10] MEDS: ACCU-CHEK XX (02:00)
[2018-07-10 03:26] LABS: AMPHETAMINE/METHAMPHETAMINE Negative (NEGATIVE); BARBITURATES Negative (NEGATIVE); BENZODIAZEPINES Negative (NEGATIVE); CANNABINOIDS Negative (NEGATIVE); COCAINE Negative (NEGATIVE); OPIATES Negative (NEGATIVE)
[2018-07-10 03:48] LABS: CREATINE KINASE 334 IU/L (23-200)
[2018-07-10 03:56] LABS: CK INDEX 0.3; CK-MB 1.14 ng/ml (0.0-2.4); TROPONIN-I < 0.012 ng/ml (0.000-0.120)
[2018-07-10] MEDS: FUROSEMIDE 20 MG TAB PO ×2 (06:34→17:38)
[2018-07-10] MEDS: INSULIN ASPART [NOVOLOG] 3 ML PEN SC ×4 (07:35→21:00)
[2018-07-10] MEDS: ASPIRIN 81 MG TAB PO (08:59)
[2018-07-10] MEDS: SACUBITRIL/VALSARTAN (24mg-26mg) TABLET PO ×2 (08:59→21:06)
[2018-07-10] MEDS: DOCUSATE SODIUM 100 MG CAP PO ×2 (08:59→21:06)
[2018-07-10] MEDS: THIAMINE 100 MG TAB PO (09:00)
[2018-07-10] MEDS: ISOSORBIDE DINITRATE 10 MG TAB PO ×3 (09:00→21:06)
[2018-07-10] MEDS: SPIRONOLACTONE 25 MG TAB PO (09:00)
[2018-07-10] MEDS: ENOXAPARIN 40 MG/0.4 ML SYG SC (09:01)
[2018-07-10] MEDS: metFORMIN 500 MG TAB PO (17:38)
[2018-07-10] MEDS: SENNA TAB PO (21:06)
[2018-07-10] MEDS: ATORVASTATIN 80 MG TAB PO (21:06)
[2018-07-10] MEDS: ACETAMINOPHEN 325 MG TAB PO (22:32)
[2018-07-11] MEDS: ACCU-CHEK XX (02:00)
[2018-07-11] MEDS: FUROSEMIDE 20 MG TAB PO ×2 (06:25→17:01)
[2018-07-11] MEDS: INSULIN ASPART [NOVOLOG] 3 ML PEN SC ×4 (07:35→21:00)
[2018-07-11] MEDS: SPIRONOLACTONE 25 MG TAB PO (08:36)
[2018-07-11] MEDS: SACUBITRIL/VALSARTAN (24mg-26mg) TABLET PO ×2 (08:36→21:14)
[2018-07-11] MEDS: DOCUSATE SODIUM 100 MG CAP PO ×2 (08:37→21:14)
[2018-07-11] MEDS: THIAMINE 100 MG TAB PO (08:37)
[2018-07-11] MEDS: ENOXAPARIN 40 MG/0.4 ML SYG SC (08:37)
[2018-07-11] MEDS: ASPIRIN 81 MG TAB PO (08:37)
[2018-07-11] MEDS: ISOSORBIDE DINITRATE 10 MG TAB PO ×3 (11:57→21:18)
[2018-07-11] MEDS: metFORMIN 500 MG TAB PO (16:55)
[2018-07-11] MEDS: SENNA TAB PO (21:14)
[2018-07-11] MEDS: ATORVASTATIN 80 MG TAB PO (21:20)
[2018-07-11] MEDS: RANOLAZINE (SR) 500 MG TAB PO (21:21)
[2018-07-12] MEDS: ACCU-CHEK XX (02:00)
[2018-07-12] MEDS: FUROSEMIDE 20 MG TAB PO ×2 (06:25→18:19)
[2018-07-12] MEDS: INSULIN ASPART [NOVOLOG] 3 ML PEN SC ×4 (07:35→20:52)
[2018-07-12] MEDS: DOCUSATE SODIUM 100 MG CAP PO ×2 (08:44→20:48)
[2018-07-12] MEDS: THIAMINE 100 MG TAB PO (08:44)
[2018-07-12] MEDS: ASPIRIN 81 MG TAB PO (09:04)
[2018-07-12] MEDS: ENOXAPARIN 40 MG/0.4 ML SYG SC (09:10)
[2018-07-12] MEDS: RANOLAZINE (SR) 500 MG TAB PO ×2 (09:10→20:49)
[2018-07-12] MEDS: SPIRONOLACTONE 25 MG TAB PO (09:15)
[2018-07-12] MEDS: SACUBITRIL/VALSARTAN (24mg-26mg) TABLET PO ×2 (09:15→20:49)
[2018-07-12] MEDS: ISOSORBIDE DINITRATE 10 MG TAB PO ×2 (09:15→13:00)
[2018-07-12] MEDS: metFORMIN 500 MG TAB PO (18:18)
[2018-07-12] MEDS: SENNA TAB PO (20:49)
[2018-07-12] MEDS: ATORVASTATIN 80 MG TAB PO (20:49)
[2018-07-13] MEDS: ACCU-CHEK XX ×2 (01:36→23:47)
[2018-07-13] MEDS: FUROSEMIDE 20 MG TAB PO ×2 (06:06→18:50)
[2018-07-13] MEDS: INSULIN ASPART [NOVOLOG] 3 ML PEN SC ×4 (07:35→21:00)
[2018-07-13] MEDS: SPIRONOLACTONE 25 MG TAB PO (08:19)
[2018-07-13] MEDS: THIAMINE 100 MG TAB PO (08:20)
[2018-07-13] MEDS: ASPIRIN 81 MG TAB PO (08:20)
[2018-07-13] MEDS: RANOLAZINE (SR) 500 MG TAB PO ×2 (08:20→20:28)
[2018-07-13] MEDS: DOCUSATE SODIUM 100 MG CAP PO ×2 (08:20→20:29)
[2018-07-13] MEDS: SACUBITRIL/VALSARTAN (24mg-26mg) TABLET PO ×2 (08:20→20:28)
[2018-07-13] MEDS: ENOXAPARIN 40 MG/0.4 ML SYG SC (08:22)
[2018-07-13] MEDS: metFORMIN 500 MG TAB PO (17:32)
[2018-07-13] MEDS: ATORVASTATIN 80 MG TAB PO (20:28)
[2018-07-13] MEDS: SENNA TAB PO (20:28)
[2018-07-14] MEDS: FUROSEMIDE 20 MG TAB PO ×2 (06:46→17:38)
[2018-07-14] MEDS: INSULIN ASPART [NOVOLOG] 3 ML PEN SC ×4 (07:35→21:00)
[2018-07-14] MEDS: ENOXAPARIN 40 MG/0.4 ML SYG SC (08:34)
[2018-07-14] MEDS: RANOLAZINE (SR) 500 MG TAB PO ×2 (08:35→21:21)
[2018-07-14] MEDS: SPIRONOLACTONE 25 MG TAB PO (08:35)
[2018-07-14] MEDS: SACUBITRIL/VALSARTAN (24mg-26mg) TABLET PO ×2 (08:35→21:22)
[2018-07-14] MEDS: ASPIRIN 81 MG TAB PO (08:36)
[2018-07-14] MEDS: THIAMINE 100 MG TAB PO (08:36)
[2018-07-14] MEDS: DOCUSATE SODIUM 100 MG CAP PO ×2 (08:36→21:21)
[2018-07-14] MEDS: metFORMIN 500 MG TAB PO (17:23)
[2018-07-14] MEDS: SENNA TAB PO (21:21)
[2018-07-14] MEDS: ATORVASTATIN 80 MG TAB PO (21:21)
[2018-07-15] MEDS: ACCU-CHEK XX (02:00)
[2018-07-15] MEDS: FUROSEMIDE 20 MG TAB PO ×2 (06:28→17:28)
[2018-07-15] MEDS: INSULIN ASPART [NOVOLOG] 3 ML PEN SC ×4 (07:35→21:00)
[2018-07-15] MEDS: DOCUSATE SODIUM 100 MG CAP PO ×2 (09:06→20:46)
[2018-07-15] MEDS: SACUBITRIL/VALSARTAN (24mg-26mg) TABLET PO ×2 (09:06→20:42)
[2018-07-15] MEDS: SPIRONOLACTONE 25 MG TAB PO (09:06)
[2018-07-15] MEDS: ASPIRIN 81 MG TAB PO (09:06)
[2018-07-15] MEDS: RANOLAZINE (SR) 500 MG TAB PO ×2 (09:06→20:42)
[2018-07-15] MEDS: ENOXAPARIN 40 MG/0.4 ML SYG SC (09:06)
[2018-07-15] MEDS: THIAMINE 100 MG TAB PO (09:06)
[2018-07-15] MEDS: metFORMIN 500 MG TAB PO (17:25)
[2018-07-15] MEDS: ATORVASTATIN 80 MG TAB PO (20:42)
[2018-07-15] MEDS: SENNA TAB PO (20:46)
[2018-07-16] MEDS: ACCU-CHEK XX (02:00)
[2018-07-16] MEDS: FUROSEMIDE 20 MG TAB PO ×2 (06:41→17:00)
[2018-07-16] MEDS: INSULIN ASPART [NOVOLOG] 3 ML PEN SC ×4 (07:35→20:27)
[2018-07-16] MEDS: THIAMINE 100 MG TAB PO (08:13)
[2018-07-16] MEDS: SACUBITRIL/VALSARTAN (24mg-26mg) TABLET PO ×2 (08:13→20:27)
[2018-07-16] MEDS: DOCUSATE SODIUM 100 MG CAP PO ×2 (08:13→20:27)
[2018-07-16] MEDS: RANOLAZINE (SR) 500 MG TAB PO ×2 (08:13→20:27)
[2018-07-16] MEDS: ASPIRIN 81 MG TAB PO (08:13)
[2018-07-16] MEDS: SPIRONOLACTONE 25 MG TAB PO (08:13)
[2018-07-16] MEDS: ENOXAPARIN 40 MG/0.4 ML SYG SC (08:14)
[2018-07-16] MEDS: metFORMIN 500 MG TAB PO (16:59)
[2018-07-16] MEDS: SENNA TAB PO (20:26)
[2018-07-16] MEDS: ATORVASTATIN 80 MG TAB PO (20:27)
[2018-07-17] MEDS: ACCU-CHEK XX (02:00)
[2018-07-17] MEDS: FUROSEMIDE 20 MG TAB PO ×2 (06:22→17:49)
[2018-07-17] MEDS: INSULIN ASPART [NOVOLOG] 3 ML PEN SC ×4 (07:35→20:41)
[2018-07-17] MEDS: THIAMINE 100 MG TAB PO (08:29)
[2018-07-17] MEDS: DOCUSATE SODIUM 100 MG CAP PO ×2 (08:29→20:22)
[2018-07-17] MEDS: RANOLAZINE (SR) 500 MG TAB PO ×2 (08:29→20:23)
[2018-07-17] MEDS: SPIRONOLACTONE 25 MG TAB PO (08:29)
[2018-07-17] MEDS: SACUBITRIL/VALSARTAN (24mg-26mg) TABLET PO ×2 (08:29→20:22)
[2018-07-17] MEDS: ASPIRIN 81 MG TAB PO (08:30)
[2018-07-17] MEDS: ENOXAPARIN 40 MG/0.4 ML SYG SC (08:35)
[2018-07-17] MEDS: metFORMIN 500 MG TAB PO (17:49)
[2018-07-17] MEDS: ATORVASTATIN 80 MG TAB PO (20:22)
[2018-07-17] MEDS: SENNA TAB PO (20:22)
[2018-07-18] MEDS: ACCU-CHEK XX (02:00)
[2018-07-18] MEDS: FUROSEMIDE 20 MG TAB PO ×2 (06:44→17:52)
[2018-07-18] MEDS: INSULIN ASPART [NOVOLOG] 3 ML PEN SC ×3 (07:35→17:35)
[2018-07-18] MEDS: THIAMINE 100 MG TAB PO (09:00)
[2018-07-18] MEDS: DOCUSATE SODIUM 100 MG CAP PO (09:41)
[2018-07-18] MEDS: SPIRONOLACTONE 25 MG TAB PO (09:42)
[2018-07-18] MEDS: SACUBITRIL/VALSARTAN (24mg-26mg) TABLET PO (09:43)
[2018-07-18] MEDS: RANOLAZINE (SR) 500 MG TAB PO (09:43)
[2018-07-18] MEDS: ENOXAPARIN 40 MG/0.4 ML SYG SC (09:45)
[2018-07-18] MEDS: ASPIRIN 81 MG TAB PO (11:17)
[2018-07-18] MEDS: metFORMIN 500 MG TAB PO (17:52)
== END 2018-07-18 19:00 | DRG 56 ==
LOC: VRC 18:49
PROC: F07Z5ZZ Bed Mobility Treatment (ICD-10-PCS; principal; 2018-07-08)
PROC: F08Z2ZZ Grooming/Personal Hygiene Treatment (ICD-10-PCS; 2018-07-08)
PROC: F06Z6ZZ Communicative/Cognitive Integration Skills Treatment (ICD-10-PCS; 2018-07-08)
DX: I69.351 Hemiplegia and hemiparesis following cerebral infarction affecting right dominant side (principal); I63.9 Cerebral infarction, unspecified; I50.23 Acute on chronic systolic (congestive) heart failure; I42.9 Cardiomyopathy, unspecified; I69.320 Aphasia following cerebral infarction; I11.0 Hypertensive heart disease with heart failure; E11.9 Type 2 diabetes mellitus without complications; E78.5 Hyperlipidemia, unspecified; R07.89 Other chest pain; Z72.89 Other problems related to lifestyle; I25.2 Old myocardial infarction; Z79.82 Long term (current) use of aspirin; F10.10 Alcohol abuse, uncomplicated; R94.31 Abnormal electrocardiogram [ECG] [EKG]; I50.84 End stage heart failure; Z79.4 Long term (current) use of insulin
CPT/HCPCS: 80053; 80307; 81003; 82550; 82553; 82962; 83880; 84484; 85025; 87081; 87086; 92507; 92523; 93005; 97110; 97112; 97116; 97163; 97167; 97530; 97535; 97542